=== PATIENT | female | born 1950 | race Caucasian/White ===

== ENCOUNTER 2019-03-31 12:05 | Inpatient (IN) | payer OTHER ==
[~2019-03-31] VITALS: Ht 170.2 cm; Wt 82.0 kg
[2019-03-31 12:18] VITALS: Ht 170.2 cm; Wt 82.0 kg
--- NOTE | 2019-03-31 12:29 | NUR ---
PT B[facility] FOR [facility]HEA X3 DAYS PT STATES SHE IS UNABLE TO EAT OR DRINK ANYTHING DUE TO THE CONSTANT DIARRHEA. PT AAOX4 NO NEURO DEFICITS PLACED ON FULL CM, PT REPORTS FEELING WEAK AND DIZZY NO NEURO DEFICITS NOTED. PT INST TO PROVIDE URINE AND STOOL SAMPLE SOON POSSIBLE. PT IN NO DISTRESS AWAITING MD EVAL AND ORDERS.
--- NOTE | 2019-03-31 12:49 | NUR ---
MSE COMPLETED BY DR DHILLON.
[2019-03-31 13:07] LABS: BASOPHIL % 0.3 % (0-2); PLATELET COUNT 250 x10^3mcL (130-400); RED CELL DISTRIBUTION WIDTH 12.6 % (11.5-14.5)
[2019-03-31 13:24] LABS: CALCIUM 9.2 mg/dL (8.5-10.1); CREATININE SERUM 1.4 mg/dL (0.6-1.0); POTASSIUM SERUM 4.4 mmol/L (3.5-5.1)
[2019-03-31 13:28] LABS: ALBUMIN 3.8 g/dL (3.4-5.0); BILIRUBIN TOTAL 0.3 mg/dL (0.20-1.00); TOTAL PROTEIN, SERUM 7.5 g/dL (6.4-8.2)
--- NOTE | 2019-03-31 14:03 | NUR ---
STOOL SENT FOR CULTURE
--- NOTE | 2019-03-31 14:15 | NUR ---
IVF INFUSION IN PROGRESS. WITH NO PROBLEM. WILL CONTINUE TO MONITOR
--- NOTE | 2019-03-31 15:30 | NUR ---
PT NAUSEOUS MEDICATED PER MD ORDERS SEE EMAR
[2019-03-31] MEDS ORDERED: LISINOPRIL10 MG PO (15:59)
[2019-03-31] MEDS ORDERED: MORPHINE SULFAT15 MG PO (15:59)
[2019-03-31] MEDS ORDERED: PRAVASTATIN SOD80 M1 PO (15:59)
[2019-03-31] MEDS ORDERED: CITALOPRAM HYDR10 M1 (16:00)
[2019-03-31] MEDS ORDERED: NORTRIPTYLINE H25 MG PO (16:00)
--- NOTE | 2019-03-31 16:35 | NUR ---
REPORT GIVEN TO EDD RAMÍREZ RESUMING CARE OF PT IN TELE FLOOR
--- NOTE | 2019-03-31 16:41 | NUR ---
REPORT TAKEN FROM JONATAN IN THE ER, ROOM PREP COMPLETED, PT ARRIVAL PENDING.
--- NOTE | 2019-03-31 16:45 | NUR ---
PT TRANSPORTED TO MED SURG FLOOR VIA GURNEY IN NO DISTRESS BY OLEGARIO PUGA RN RESUMING CARE OF PT.
[2019-03-31 16:59] VITALS: BP 126/64
--- NOTE | 2019-03-31 17:37 | NUR ---
PT IN NAD AT THIS TTME, EATING DINNER, DENIED ABD PAIN. ASSESSMENT COMPLETE WILL CONTINUE TO MONITOR.
--- NOTE | 2019-03-31 18:41 | NUR ---
PT RESTING AT THIS TIME, TOLERATED DINNER WELL, IN NAD, WILL REPORT TO DIVIDER OPERATOR NURSE AND ENDORSE CARE.
--- NOTE | 2019-03-31 19:18 | NUR ---
REPORT GIVEN TO RPG PROGRAMMER NURSE AT THE BEDSIDE, PT REPORTED UNCONTROLLED DIARRHEA, STOOL OBSERVED ON FLOOR. PT ASSISTED TO RESTROOM TO CLEAN HERSELF. FLOOR CLEANED, EVS CALLED TO CLEAN FURTHER. PT BEDING CHANGED, NEW GOWN AND SOCKS GIVEN TO PT. PT ADVISED TO RETURN TO BED, AND CALL IF SHE NEED ASSISTANCE. CARE ENDORSED.
--- NOTE | 2019-03-31 19:20 | NUR ---
PATIENT ROUND /REPORT AT THIS TIME,EDD FOUND PATIENT IN SHOWER,SAYS SHE IS OK,MEDSURG PATIENT[facility].
--- NOTE | 2019-03-31 19:38 | NUR ---
SHIFT REASSESSMENT DONE.PATIENT ALERT AND ORIENTED.BREATHING E4ASY.MAKE NEEDS KNOWN TO STAFF,HAD A SHOWER,NO INCIDENT,ATTENDED BY Grisel PUGA.D5NS AT 80 CC/ HOUR.MEDSURG PATIENT.CAME IN WITH DIARRHEA PER REPORT.SKIN INTACT.VOIDING.CALL LIGHT IN REACH.
--- NOTE | 2019-03-31 20:05 | NUR ---
PATIENT VERY UPSET,WANTED PATTI,DESIREE FROM DAY SHIFT PROMISED MED,DR AUSTIN MORALES,MADE AWARE.
[2019-03-31 21:17] VITALS: BP 114/56
--- NOTE | 2019-03-31 22:56 | NUR ---
DR AVILA WILL TALK TO PATIENT,PAGED,WANTING PAIN SHOT,MSO4 BUT HAS NO ORDER.CHARGE NURSE BLAYNE AWARE.
--- NOTE | 2019-03-31 22:57 | NUR ---
PT UPSET AND ASKING FOR MORPHINE. STATES SHE HAS BEEN HAVING DIARRHEA FOR 4 DAYS BECAUSE SHE HAS NOT BEEN TAKING HER HOME MEDS INCLUDING MORPHINE. INFORMED DR. AVILA TO ADD HOME MEDS INCLUDING SOMETHING FOR PAIN. DR. AVILA AT BEDSIDE TO SPEAK TO THE PT.
--- NOTE | 2019-03-31 23:00 | NUR ---
DR AVILA TA BEDSIDE NOW,TALKING TO PATIENT.
--- NOTE | 2019-03-31 23:15 | NUR ---
RECEIVED REPORT FROM SHANEL FOR CONTINUITY OF CARE. ALL QUESTIONS AND CONCERNS ADDRESSED, WILL FOLLOW UP WITH DR AVILA IN REGARDS TO ORDERING HER HOME MEDS. PT CALM AND COOPERATIVE WITH CARE AT THIS TIME, EMPTIED SMALL AMOUNT OF DIARRHEA FROM BSC, PT REQUESTING MEDICATION FOR NAUSEA, WILL MEDICATE PER ORDER. ALL COMFORT AND SAFETY MEASURES PROVIDED FOR, CALL LIGHT WITHIN REACH, BED IN LOWEST POSITION, WILL CONTINUE TO MONITOR.
--- NOTE | 2019-03-31 23:16 | NUR ---
PATIENT GIVEN AWAY TO [facility] FOR CONTINUITY OF CARE.
--- NOTE | 2019-04-01 01:30 | NUR ---
PT SEEN RESTING IN BED, W/ EYES CLOSED, NO S/S OF PAIN NOTED. CALL LIGHT WITHIN REACH, BED IN LOWEST POSITION, ENVIRONMENT FREE OF CLUTTER, IV SITE REMAINS PATENT TO LT WRIST, D5 NS @ 80ML/HR. NO REDNESS, SWELLING OR PAIN NOTED. WILL CONTINUE TO MONITOR.
--- NOTE | 2019-04-01 05:00 | NUR ---
PT RESTED IN INTERVALS DURING SHIFT, NO ACUTE CHANGES OCCURRING OVERNIGHT. PT RESTED AFTER BEING PROVIDED MS CONTIN 15MG TAB AND ZOFRAN IVP. PT PROVIDED SLEEP AID WITH GOOD EFFECTS. PT REMAINS ON D5 NS @ 80ML/HR. NO REDNESS, SWELLING OR PAIN NOTED. OBTAINED ORDER FOR OVA & PARASITE CX, PT HAS NOT HAD A BM SINCE ORDER HAS BEEN PUT IN. PT AWARE WE NEED A SAMPLE AND BSC AT BEDSIDE. ALL COMFORT AND SAFETY MEASURES PROVIDED FOR, CALL LIGHT WITHIN REACH, BED IN LOWEST POSITION, WILL CONTINUE TO MONITOR.
[2019-04-01 05:20] VITALS: BP 103/50
--- NOTE | 2019-04-01 05:55 | NUR ---
OFFERED TO INSERT NEW IV FOR PT SINCE IT IS IN THE LT WRIST AND MACHINE ALERTS TO HIGH PRESSURE SEVERAL TIMES. IV SITER REMAINS FREE OF REDNESS, PT DENIES PAIN WITH FLUSHING. PT REFUSING, EDUCATED PT TO ALERT STAFF IF IV SITE BEGINS TO BECOME SORE OF RED. PT VERBALIZES UNDERSTANDING. WILL CONTINUE TO MONITOR.
[2019-04-01 06:14] LABS: BASOPHIL % 0.7 % (0-2); PLATELET COUNT 223 x10^3mcL (130-400)
[2019-04-01 06:41] LABS: CALCIUM 8.1 mg/dL (8.5-10.1); CREATININE SERUM 1.3 mg/dL (0.6-1.0); POTASSIUM SERUM 4.3 mmol/L (3.5-5.1)
--- NOTE | 2019-04-01 08:11 | NUR ---
AT 0710 - RECEIVED PATIENT FROM NIGHT NURSE. AWAKE, ALERT AND ORIENTED X 4. HAS RECEIVED PAIN MEDICATION FOR HEADACHE. CONTINUING DIARRHEA. PATIENT USING BEDSIDE COMODE. IV INFUSING D5 NS AT 80- ML/HR. AT 0800 - PATIENT REPROTS THAT SHE STIL HAS SOME HEADACHE. WILL FOLLOW-UP WITH DR REGARDING MS TABITHA AND LUKE RHAT PATIENT TAKES FOR HEADACHE.
[2019-04-01 09:07] VITALS: BP 113/69
--- NOTE | 2019-04-01 11:01 | NUR ---
AT 0850 - SEEN BY DR UPTON. NEW ORDERS RECEIVED. AWAITING C-DIFF RESULTS. AT 0930 - COMMENCED ON MS CONTIN BID. FIRST DOSE ADMINISTERED. STOOL COLLECTED AND TAKEN TO LAB FOR O&P.
--- NOTE | 2019-04-01 13:03 | NUR ---
AT 1030 - PATIENT WAS PLACED ON AIR MATTRESS FOR COMFORT DUE TO CHRONIC BACK PAIN. PATIENT AMBULATED TO BATHROOM. AT 1100 - PAMELOR ADMINISTERED PER EMAR SCHEDULED. AT 1240 - PATIENT REPORTS THAT HEADACHE IS UNDER CONTROL AT PRESENT AND THAT AIR MATTRESS IS MORE COMFORTABLE. NO DIARRHEA, NO BM SINCE 0730 THIS MORNING.
[2019-04-01 17:04] VITALS: BP 100/53
--- NOTE | 2019-04-01 19:00 | NUR ---
QUIET AFTERNOON. NO FURTHER DIARRHEA. PATIENT TOLERATING CARDIAC DIET AND PO FLUIDS. IV INFUSION OF D5 NS CONTINUES AT 80 ML/HR. VOIDING IN BATHROOM OR BSC. NOW MEDICATED WITH TYLANOL FOR HEADACHE. WILL ENDORSE CARE TO NIGHT HURSE.
--- NOTE | 2019-04-01 19:10 | NUR ---
REPORT RECEIVED FROM DAY SHIFT RN. PATIENT WAS SEEN AND IS RESTING IN BED COMFORTABLY. NO DISTRESS NOTED. BREATHING EVEN AND UNLABORED ON ROOM AIR. NO SOB OR RESP DISTRESS NOTED. C/O OF CHRONIC BACK PAIN AND HEADACHE, BUT TOLERABLE AT THIS TIME. SCHEDULED PAIN MED DUE AT 2100. PATIENT AWARE. DENIES CHEST PAIN/PRESSURE. NO DIARRHEA NOTED AT THIS TIME. IV TO THE LW INFUSING WELL. PATENT AND INTACT. NO REDNESS OR SWELLING NOTED. COMFORT AND SAFETY MEASURES IN PLACE. BED IS LOCKED AND IN THE LOWEST POSITION. SIDE RAILS UP X2. CALL LIGHT IS WITHIN REACH. WILL CONTINUE TO MONITOR.
[2019-04-01 21:07] VITALS: BP 103/51
--- NOTE | 2019-04-02 03:11 | NUR ---
RESTING IN BED WITH EYES CLOSED. NO DISTRESS NOTED. BREATHING EVEN AND UNLABORED ON ROOM AIR. NO SOB OR RESP DISTRESS NOTED. EVEN AND SYMMETRIC CHEST RISE AND FALL. IV FLUIDS INFUSING WELL. NO S/S OF PAIN NOTED. SAFETY MEASURES IN PLACE. CALL LIGHT IS WITHIN REACH. WILL CONTINUE TO MONITOR.
--- NOTE | 2019-04-02 05:40 | NUR ---
C/O 10/10 HEADACHE. DESCRIBES PAIN PRESSURE. PRN TYLENOL WAS ADMINISTERED PRESCRIBED. WILL CONTINUE TO MONITOR.
--- NOTE | 2019-04-02 06:21 | NUR ---
RESTED IN LONG INTERVALS THROUGHOUT THE NIGHT. NO ACUTE CHANGES NOTED. BREATHING EVEN AND UNLABORED ON ROOM AIR. NO SOB OR RESP DISTRESS NOTED. NO S/S OF DISTRESS NOTED. C/O CHRONIC BACK PAIN AND HEADACHE. ADMINISTERED SCHEDULED MS CONTIN AND TYLENOL W/ GOOD RELIEF. IV TO THE LEFT WRIST INFUSING WELL. PATENT AND INTACT. NO REDNESS OR SWELLING NOTED. NO BM/DIARRHEA NOTED ON THE SHIFT. SAFETY MEASURES IN PLACE. CALL LIGHT IS WITHIN REACH. WILL ENDORSE CARE TO DAY SHIFT RN
[2019-04-02 06:34] VITALS: BP 109/53
--- NOTE | 2019-04-02 06:45 | NUR ---
C/O NAUSEA. EDUCATED THAT PRN ZOFRAN IS AVAILABLE. REQUSTING ZOFRAN. ADMINISTERED PRESCRIBED. EDUCATED PATIENT ON POSS ADVERSE EFFECTS. VERBALIZED UNDERSTANDING. TYLENOL FOR HEADACHE HAD NO RELIEF. REQUESTING DEMEROL SHOT. STATED "MY HEADACHE TURNED INTO A MIGRAINE". WILL ENDORSE CARE TO DAY SHIFT RN
[2019-04-02 07:18] LABS: CALCIUM 8.3 mg/dL (8.5-10.1); CARBON DIOXIDE 26.1 mmol/L (21-32); CREATININE SERUM 1.2 mg/dL (0.6-1.0); POTASSIUM SERUM 4.3 mmol/L (3.5-5.1)
[2019-04-02 07:20] LABS: BASOPHIL % 0.8 % (0-2); PLATELET COUNT 216 x10^3mcL (130-400); RED CELL DISTRIBUTION WIDTH 13.2 % (11.5-14.5)
--- NOTE | 2019-04-02 07:25 | NUR ---
RECEIVED PT RESTING IN BED. AAOX4. C/O HEADACHE. RESP EVEN AND UNLABORED ON RA. VERBALIZED NAUSEA RELIEF. NO REPORTS OF DIARRHEA THIS AM. ON AIR MATTRESS. C/O BACK PAIN, TOLERABLE. GEN WEAKNESS. IVF INFUSING TO L WRIST, NO REDNESS OR SWELLING NOTED. BED IN LOW POSITION, CALL LIGHT WITHIN REACH. WILL CONTINUE TO MONITOR.
[2019-04-02 08:08] VITALS: BP 102/48
[2019-04-02 08:24] VITALS: BP 100/48
[2019-04-02 10:23] VITALS: BP 100/48
--- NOTE | 2019-04-02 12:14 | NUR ---
1. Recommend continuing cardiac diet. 2. UC diet education provided. Patient to be D/C today. Discussed patient condition with YOUNG Hall.
--- NOTE | 2019-04-02 12:14 | NUR ---
Initial Nutrition Assessment: 241/B THELMA JAIN IA HR Dx: Diarrhea, dehydration PMHx: colitis, CA, HTN PSHx: none per patient Labs: BUN 20H, CREAT 1.2H, NA 146H Meds: D 5%, lomotil, zofran Diet: cardiac PO Intake: (04/01) dinner, lunch 80%, breakfast 75% Ht: 170.18 cm (67") Wt: 82 kg (180#) BMI: 28.3 kg/m2 Bed scale: 82 kg IBW: 135# (61 kg) %IBW: 133 UBW: 80-82 kg Age: 68/F Food Allergies: NKFA Skin: intact Ilya: 21 Edema: none GI: c/o diarrhea Last BM: 04/01 Per H&P, Pt is a 68-year old female who has a 3 day history of diarrhea. According to patient she has a history of colitis and has been having constant diarrhea for years now she states that she felt dizzy and abdominal pain increased for this reason she was brought to the ER to be evaluated. RDN Visit (04/02): Patient was alert and oriented and said that she has poor appetite and could not finish her breakfast this morning. Patient was also c/o migraine headache. Patient discussed about her eating pattern and said that she consumes Ensure for breakfast and popcorn for lunch, She admitted that her eating patterns is very random and bizarre. She does not consume a lot of meats and consumes mostly dairy products. Patient said that she is alone and doesn't like to cook food just for herself. I gave her tips on how nutritious easy to prep meals. FNS received consult for "diarrhea (UC)" on 04/01. Problem with: N/V/D/C: nausea, no diarrhea Problems with: Chewing/Swallowing: none Current appetite: poor Recent wt change: none %wt change: n/a Vitamin/Supplement use: MVI Special diet at home: Ensure, yogurt, popcorn, unusual diet pattern. Physical activity: gardening Nutrition education given: [facility] handout on "IBD- Crohn's disease and ulcerative colitis" was provided. Food-drug interactions: none Education given: n/a Estimated Nutritional Needs Based on adjusted body weight 66 kg Energy: 6800-4398 kcal/d (25-30 kcal/kg) Protein: 66-79 g/d (1.0-1.2 g/kg) - preserve LBM Fluid: 0297-9010 ml/d (1 ml/kcal) or per doctor Nutrition Diagnosis 1. Inadequate oral intake related to poor appetite, nausea as evidenced by self-reported poor PO of <50%. 2. Altered GI function related to ulcerative colitis as evidenced by diarrhea. Intervention 1. Recommend continuing cardiac diet. 2. UC diet education provided. Patient to be D/C today. Discussed patient condition with YOUNG Hall. Monitor/Evaluate Goal: PO intake at least 75% of estimated needs Monitor: PO intake, Labs, GI function F/U in 3-5 days as moderate risk 04/05-
--- NOTE | 2019-04-02 12:35 | NUR ---
PT SITTING UP ON THE SIDE OF THE BED EATING LUNCH. AAOX4. MEDICATED PER EMAR FOR MIGRAINE. IV TO L WRIST DC'D WITH CATHETER INTACT. CALL LIGHT WITHIN REACH. WILL CONTINUE TO MONITOR.
--- NOTE | 2019-04-02 14:04 | NUR ---
PT DISCHARGED TO HOME IN NO ACUTE DISTRESS. AWAKE, ALERT, AND ORIENTED. VSS. DISCHARGE EDUCATION PROVIDED, PT VERBALIZED UNDERSTANDING. INSTRUCTED PT TO FOLLOW UP WITH PCP. BELONGINGS WITH PT. ADDY MAYO ACCOMPANIED PT TO LOBBY.
== END 2019-04-02 13:44 | disposition home or self-care (01) | DRG 391 ==
LOC: ED 12:05 → MU 15:38
PROVIDERS: Emergency Medicine; ADMIT General Practice
DX: K52.9 Noninfective gastroenteritis and colitis, unspecified (principal); N17.0 Acute kidney failure with tubular necrosis; E86.0 Dehydration; I10 Essential (primary) hypertension; M54.9 Dorsalgia, unspecified; G89.4 Chronic pain syndrome; I25.10 Atherosclerotic heart disease of native coronary artery without angina pectoris; I25.2 Old myocardial infarction; Z68.28 Body mass index [BMI] 28.0-28.9, adult
CPT/HCPCS: 87046; 87046-59; G0378; J1885; J2405; J3490; J7030; J7042